=== PATIENT | female | born 1955 | race African-American/Black ===

== ENCOUNTER 2023-03-16 00:57 | Emergency (ER) | payer BC, MEDICARE ==
[~2023-03-16] VITALS: Ht 157.5 cm; Wt 81.6 kg
[2023-03-16] MEDS ORDERED: VENL37.55 PO (01:29)
[2023-03-16] MEDS ORDERED: ZOLP6.252 PO (01:29)
[2023-03-16] MEDS ORDERED: ESTR0.5T PO (01:29)
[2023-03-16] MEDS ORDERED: LORA0.5T48 PO (01:29)
[2023-03-16] MEDS ORDERED: NORE5TAB8 PO (01:29)
[2023-03-16] MEDS ORDERED: HYDR-501 PO (01:29)
[2023-03-16 02:54] LABS: BASOPHILS % (AUTO) 0.5 % (0.0-2.0); EOSINOPHILS # (AUTO) 0.1 K/uL (0.0-0.7); EOSINOPHILS % (AUTO) 1.4 % (0.0-7.0); HEMATOCRIT 33.8 % (31.2-41.9); HEMOGLOBIN 11.4 g/dL (10.9-14.3); LYMPHOCYTES # (AUTO) 3.2 K/uL (0.8-4.8); LYMPHOCYTES % (AUTO) 35.9 % (20.5-51.5); MEAN CORPUSCULAR HEMOGLOBIN 31.5 uug (24.7-32.8); MEAN CORPUSCULAR HGB CONC 34 g/dL (32.3-35.6); MEAN CORPUSCULAR VOLUME 93.7 fL (75.5-95.3); MONOCYTES # (AUTO) 0.9 K/uL (0.1-1.30); MONOCYTES % (AUTO) 10.1 % (0.0-11.0); NEUTROPHILS # (AUTO) 4.6 K/uL (1.8-8.9); NEUTROPHILS % (AUTO) 52.1 % (38.5-71.5); PLATELET COUNT (AUTO) 202 K/uL (179-408); RED BLOOD CELL COUNT(AUTO) 3.61 MIL/uL (3.63-4.92); RED CELL DISTRIBUTION WIDTH 14.1 % (12.3-17.7); WHITE BLOOD COUNT (AUTO) 8.9 K/uL (3.8-11.8)
[2023-03-16 03:20] LABS: DIFFERENTIAL COMMENT 1
[2023-03-16 03:26] LABS: CALCIUM 8.7 mg/dL (8.5-10.1); CREATININE 0.9 mg/dL (0.6-1.3); POTASSIUM 4.1 mmol/L (3.5-5.1)
[2023-03-16 03:38] LABS: MAGNESIUM 2.4 mg/dL (1.8-2.4)
[2023-03-16 04:52] VITALS: BP 121/79; TEMP 98; O2SAT 98
== END 2023-03-16 04:35 | disposition home or self-care (01) ==
LOC: ER 01:08
DX: R60.0 Localized edema (principal); Z79.899 Other long term (current) drug therapy
CPT/HCPCS: 36415; 83735; 85025; 85730; 93005; A4663